=== PATIENT | female | born 2000 | race Caucasian/White ===

== ENCOUNTER 2023-05-07 21:23 | Emergency (ER) | payer SELFPAY ==
[~2023-05-07] VITALS: Ht 167.6 cm; Wt 95.0 kg
[2023-05-07] MEDS ORDERED: IBUPROFEN 600MG TABLET PO STA (22:55)
[2023-05-07 23:13] VITALS: BP 125/78
[2023-05-08] MEDS ORDERED: CYCL5TAB PO (01:43)
[2023-05-08] MEDS ORDERED: NAPR-681 PO (01:43)
== END 2023-05-08 01:50 | disposition home or self-care (01) ==
LOC: ER 21:23
DX: S60.511A Abrasion of right hand, initial encounter (principal); R51.9 Headache, unspecified; M79.601 Pain in right arm; V49.49XA Driver injured in collision with other motor vehicles in traffic accident, initial encounter; Y93.89 Activity, other specified; Y92.89 Other specified places as the place of occurrence of the external cause; Y99.8 Other external cause status
CPT/HCPCS: 71045; 72100; 73080; 73090; 73130; 81025; 99284